=== PATIENT | female | born 2000 | race Caucasian/White ===

== ENCOUNTER 2019-04-28 12:00 | Emergency (ER) | payer OTHER ==
--- OUTSIDE RECORDS SUMMARY | 2019-04-28 12:09 | XMS REPORT | Continuity of Care Document ---
:2000 Author Organization [facility] Address [address] [place] [address] Phone Care Team Providers Name Role Phone Guilherme Hinojosa MD Unavailable Unavailable Allergies, Adverse Reactions, Alerts Substance Reaction Status shellfish derived Active tree nut Active egg Active Medications Medication Instructions Dosage Effective Dates Status Comments (start - stop) ProAir RespiClick 2-4 sprays every 4 - Active !! Check INHALATION INHALER hours as needed [employer] Pricing: BIN #: [id number] Group #: [id number] Card #: [id number] PCN:MARLA Qvar RediHaler 80 2 sprays twice - Active !! Check mcg/actuation HFA daily [employer] breath activated Pricing: BIN #: aerosol [id number] Group #: [id number] Card #: [id number] PCN:MARLA EpiPen 2-Franklyn 0.3 Use As Directed - Active !! Check mg/0.3 mL [employer] injection, Pricing: BIN #: auto-injector [id number] Group #: [id number] Card #: [id number] PCN:MARLA ProAir HFA 90 USE 2 INHALATIONS - Active !! Check mcg/actuation ORALLY BEFORE [employer] aerosol inhaler EXERCISE AND EVERY Pricing: BIN #: 4HOURS NEEDED [id number] Group #: [id number] Card #: [id number] PCN:MARLA Focalin XR 15 mg 1 pill each am - Active !! Check capsule,extended [employer] release Pricing: BIN #: [id number] Group #: [id number] Card #: [id number] PCN:MARLA Qvar 80 2 sprays twicea - Active !! Check mcg/actuation daily [employer] Metered Aerosol Pricing: BIN #: oral inhaler [id number] Group #: [id number] Card #: [id number] PCN:MARLA ProAir HFA 90 2 puff by - Active !! Check mcg/actuation Inhalation route [employer]Wize aerosol inhaler once ;administer Pricing: BIN #: with spacer [id number] Group #: [id number] Card #: [id number] PCN:MARLA OptiChamber Namrata use as directed - Active !! 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, unspecified Non-adherence to medical treatment Allergic rhinitis due to pollen Allergy to other foods Attention-deficit hyperactivity disorder, predominantly inattentive type Mild persistent asthma, uncomplicated Unspecified asthma, uncomplicated Allergic rhinitis due to pollen Mild persistent asthma Allergy to other foods Attention-deficit hyperactivity disorder, predominantly inattentive type Unspecified asthma, uncomplicated Unspecified asthma, uncomplicated Attention-deficit hyperactivity disorder, predominantly inattentive type Allergy to other foods Attention-deficit hyperactivity disorder, predominantly inattentive type Unspecified asthma, uncomplicated Allergic rhinitis due to pollen Allergy to other foods Attention-deficit hyperactivity disorder, predominantly inattentive type Unspecified asthma, uncomplicated Allergic rhinitis due to pollen Attention-deficit hyperactivity disorder, predominantly inattentive type Allergy to other foods Attention-deficit hyperactivity disorder, predominantly inattentive type Learning disability Attention-deficit hyperactivity disorder, predominantly inattentive type Unspecified asthma, uncomplicated Attention-deficit hyperactivity disorder, predominantly inattentive type Learning disability Pseudopapilledema of optic disc, bilateral Unspecified asthma, uncomplicated Allergic rhinitis due to pollen Allergy to other foods Attention-deficit hyperactivity disorder, predominantly inattentive type ADHD predominantly inattentive - type Learning disability - Pseudopapilledema of optic disc, - bilateral Unspecified asthma, uncomplicated Allergic rhinitis due to pollen Allergy to other foods Asthma, unspecified Allergy to other foods Allergic rhinitis due to pollen Asthma Asthma, unspecified Allergy, unspecified, not elsewhere classified Procedures Procedure Date OXIMETRY- Single determination SPIROMETRY OFFICE/OUTPATIENT VISIT EST 33-40 MEASURE BLOOD OXYGEN LEVEL BREATHING CAPACITY TEST OFFICE/OUTPATIENT VISIT EST Spirometry Test PULSE OXIMETRY -SINGLE DETER OFFICE/OUTPATIENT VISIT, EST Spirometry Test OFFICE/OUTPATIENT VISIT, EST OFFICE/OUTPATIENT VISIT, EST Spirometry Test OFFICE/OUTPATIENT VISIT, EST Spirometry Test Spirometry Test OFFICE/OUTPATIENT VISIT, EST OFFICE/OUTPATIENT VISIT, EST OFFICE/OUTPATIENT VISIT, EST Spirometry Test OFFICE/OUTPATIENT VISIT, EST OFFICE/OUTPATIENT VISIT, EST Spirometry Test OFFICE/OUTPATIENT VISIT, EST OFFICE/OUTPATIENT VISIT, NEW Spirometry Test OFFICE/OUTPATIENT VISIT, EST Spirometry Test OFFICE/OUTPATIENT VISIT, EST Spirometry Test OFFICE/OUTPATIENT VISIT, EST OFFICE/OUTPATIENT VISIT, EST MEASURE BLOOD OXYGEN LEVEL BREATHING CAPACITY TEST RESPIRATORY FLOW VOLUME LOOP OFFICE/OUTPATIENT VISIT, EST MEASURE BLOOD OXYGEN LEVEL EVALUATION OF WHEEZING RESPIRATORY FLOW VOLUME LOOP OFFICE/OUTPATIENT VISIT, EST MEASURE BLOOD OXYGEN LEVEL BREATHING CAPACITY TEST RESPIRATORY FLOW VOLUME LOOP OFFICE CONSULTATION OFFICE/OUTPATIENT VISIT, EST MEASURE BLOOD OXYGEN LEVEL BREATHING CAPACITY TEST RESPIRATORY FLOW VOLUME LOOP OFFICE/OUTPATIENT VISIT, EST MEASURE BLOOD OXYGEN LEVEL BREATHING CAPACITY TEST RESPIRATORY FLOW VOLUME LOOP OFFICE/OUTPATIENT VISIT, EST MEASURE BLOOD OXYGEN LEVEL BREATHING CAPACITY TEST RESPIRATORY FLOW VOLUME LOOP OFFICE/OUTPATIENT VISIT, EST MEASURE BLOOD OXYGEN LEVEL BREATHING CAPACITY TEST OFFICE/OUTPATIENT VISIT, EST MEASURE BLOOD OXYGEN LEVEL EVALUATION OF WHEEZING RESPIRATORY FLOW VOLUME LOOP OFFICE/OUTPATIENT VISIT, EST MEASURE BLOOD OXYGEN LEVEL BREATHING CAPACITY TEST RESPIRATORY FLOW VOLUME LOOP OFFICE/OUTPATIENT VISIT, EST MEASURE BLOOD OXYGEN LEVEL BREATHING CAPACITY TEST RESPIRATORY FLOW VOLUME LOOP OFFICE/OUTPATIENT VISIT, EST MEASURE BLOOD OXYGEN LEVEL BREATHING CAPACITY TEST RESPIRATORY FLOW VOLUME LOOP Results Test Name Date and Time Measure Units Reference Range Abnormal Flag Status Comments Panel Description: FVC Preliminary Image FVC 1 FVC (%Pred) 09:48:41 103 % Preliminary FEV1 (%Pred) 09:48:41 95 % Preliminary FEV1/FVC 09:48:41 0.807 >0.769 Preliminary FEF 25-75% (%Pred) 09:48:41 87 % Preliminary PEF (%Pred) 09:48:41 84 % Preliminary PEF (L/min) 09:48:41 364 L/min >320 Preliminary FEF25% (%Pred) 09:48:41 % Preliminary FEF50% (%Pred) 09:48:41 % Preliminary FEF75% (%Pred) 09:48:41 % Preliminary FET 09:48:41 5.85 s Preliminary Advance Directives Directive Yes / No Effective Date File Name No information Encounters Encounter Practice Location Reason(s) Diagnoses Date Provider Providers Description For Visit Copied on Encounter OFFICE/OUTPAT [facility] asthma Mild Jan- Dozor Referring IENT VISIT [facility] (chief persistent Guilherme. 19 Provider: EST 33-40 Health Pulmonology complaint) asthma with 9 [facility], (acute) [facility], [address] exacerbation [address], [facility] [place], [address] [place], [address], [place] [address], to [place]. Pediatrics, bennett ClarkeAttent tel:+4 [place], [address], ion-deficit [id number] [place], [place], [place] hyperactivit [address]. tel:+[phone] y disorder, tel:[phone] predominantl [address] y inattentive typeDevelopm ental disorder of scholastic skills, unspecifiedN on-adherence to medical treatment OFFICE/OUTPAT [facility] Allergic Jul- Dozor Referring IENT VISIT [facility] rhinitis due Guilherme. 19 Provider: EST Health Pulmonology to 9 [facility], [facility], , [address] y to other [address], [facility] foodsAttenti Coy, [place], [address], [address], [address], hyperactivit [place]. Coy, Coy, y disorder, tel:+4 [place], [address]. [place], [address], predominantl [id number] tel:[phone] [place] y [address] tel:[phone] inattentive 64366 typeMild persistent asthma, uncomplicate dUnspecified asthma, uncomplicate d OFFICE/OUTPAT [facility] Allergic Jan- Dozor Referring IENT VISIT, [facility] rhinitis due Guilherme. 19 Provider: EST Health Pulmonology to 8 [facility], [facility], E, [address] persistent [address], [facility] asthmaAllerg Coy, [address], [address], [address], [place] [address], foodsAttenti [place]. Pediatrics, Coy, [place]: [place], [address], hyperactivit [id number] [place], [place] y disorder, [address]. tel: predominantl tel: [phone] y [phone] inattentive typeUnspecif ied asthma, uncomplicate d OFFICE/OUTPAT [place] Unspecified Dozor Referring IENT VISIT, [facility]'s [facility] asthma, 0-201 Guilherme. 19 Provider: [facility] uncomplicate 8 [facility], [facility], E, [address] eficit [address], [facility] hyperactivit Coy, Ave, [address] [place], [address], [place] [address], predominantl [place]. Pediatrics, Coy, [place]: [place], [address], inattentive [id number] [place], [place], [place] typeAllergy [address]. tel: to other tel: [phone] foods [phone] OFFICE/OUTPAT [place] Attention-de Mar-0 Bonnie Referring IENT VISIT, Children's Bonnie DU ficit 5-201 Ander. Provider: [facility] [place] hyperactivit 8 [address] [facility], Office y disorder, [place], E, [address] predominantl [address], [facility] Pediatric [address], [address] inattentive Neurology [place] [address], type Assoc, Pediatrics, Coy, [place], [place], [address], [place], [place], [place], [place] [id number], [address]. tel: [place]. tel: [phone] tel: [phone] OFFICE/OUTPAT [place] Unspecified Dozor Referring IENT VISIT, [facility] [place] asthma, Guilherme. 19 Provider: Critical access hospital Pulmonology uncomplicate 7 [facility] [place] [facility], [facility], E, [address] rhinitis due [address], [facility] to Coy, Ave, [address] [place], [address], [place] [address], y to other [place]. Pediatrics, Coy, foodsAttenti tel:+ [place], [address], on-deficit [id number] [place], [place] hyperactivit [address]. tel: y disorder, tel:+ [phone] predominantl [address] y inattentive type OFFICE/OUTPAT [place] Unspecified Dozor Referring IENT VISIT, [facility], Guilherme. 19 Provider: Critical access hospital Pulmonology uncomplicate 7 [facility], [facility], E, [address] rhinitis due [address], [facility] to Coy, Ave, [address] [place], [address], [place] [address], ion-deficit [place]. Pediatrics, Coy, [place]: [place], [address], y disorder, [id number] [place], [place], [place] predominantl [address]. tel: y tel:[phone] inattentive 95842 typeAllergy to other foods OFFICE/OUTPAT [place] Attention-de Omid-2 Bonnie Referring IENT VISIT, Children's Bonnie DU ficit Ander. Provider: [facility] [place] hyperactivit 7 [address] Errol [facility], Office y disorder, [place], E, [address] predominantl [address], [facility] y Pediatric Ave, [address] inattentive Neurology [place] [address], typeLearning Assoc, Pediatrics, Coy, disability [place], [place], [address], [place], [place], [place], [place] [id number], [address]. tel: [place]. tel: [phone] tel:[phone] OFFICE/OUTPAT [place] Attention-de May-2 Bonnie Referring IENT VISIT, Childrenrachael Nicole MD ficit 0-201 Ander. Provider: [facility] Road[facility]it 7 [address] Errol [facility], Office y disorder, [place], E, [address] predominantl [address], [place] y Pediatric [address], [address] inattentive Neurology [place] [address], type Assoc, Pediatrics, Coy, [place], [place], [address], [place], [place], [place], [place] [id number], [address]. tel: [place]. tel: [phone] tel:[phone] OFFICE/OUTPAT [facility] Unspecified Apr- Dozor Referring IENT VISIT, Children's [facility] asthma, Guilherme. 19 Provider: Critical [facility] Errol [facility], [facility], E, [address], [place], [address], [address] [place], [address], [place] [address], [place]. Pediatrics, Coy, tel: [facility], [address], [id number] [place] [address]. tel: tel:[phone] OFFICE/OUTPAT [place] Attention-de Mar- Bonnie Referring IENT VISIT, Cale Nicole MD ficit 8201 Ander. Provider: [facility] [place] hyperactivit 7 [address] [facility], Office y disorder, [place], E, [address] predominantl [address], [place] y Pediatric [address], [address] inattentive Neurology [place] [address], typeLearning Assoc, Pediatrics, Coy, disabilityPs [place], [place], [address], eudopapilled [place], [place], [place], [place] cipriano of optic [id number], [address]. tel:[phone] disc, [place]. tel:[phone] bilateral tel:[phone] OFFICE/OUTPAT [place] Unspecified Sep- Dozor Referring IENT VISIT, [facility] asthma, Guilherme. 19 Provider: Critical access hospital Pulmonology uncomplicate 6 [facility] Errol [facility], [facility], E, [address] rhinitis due [address], [facility] to Coy, Ave, [address] [place], [address], [place] [address], y to other [place]. Pediatrics, Coy, foodsAtt[place]: [place], [address], on-deficit [id number] [place], [place], [place] hyperactivit [address]. tel:459 y disorder, tel:[phone] predominantl [address] y inattentive type OFFICE/OUTPAT [place] ADHD Omid- Bonnie Referring IENT VISIT, Children's Bonnie DU predominantl 3-201 Ander. Provider: [facility] y 6 [address] Errol [facility], Office inattentive [place], E, [address] typeLearning [address], [facility] disabilityPs Pediatric Ave, [address] eudopapilled Neurology [place] [address], cipriano of optic Assoc, Pediatrics, Coy, disc, [place], [place], [address], bilateral [place], [place], [place], [place] [id number], [address]. tel:459 [place]. tel:[phone] tel:[phone] OFFICE/OUTPAT [place] Unspecified Apr- Dozor Referring IENT VISIT, [facility] asthma, Guilherme. 19 Provider: Critical access hospital Pulmonology uncomplicate 6 [facility], [facility], E, [address] rhinitis due [address], [facility] to Coy, Ave, [address] [place], [address], [place] [address], y to other [place]. Pediatrics, Coy, [place]: [place], [address], [id number] [place] [address]. tel: tel: [phone] OFFICE/OUTPAT [place] Asthma, Sep-0 Dozor Referring IENT VISIT, [facility] Peds unspecifiedA Guilherme. 19 Provider: EST Health Pulmonology llergy to 5 [facility], other [address], E, [address] foodsAllergi [address], [place] c rhinitis Coy, [address], [address] [place], [address], [place] [address], pollen [place]. Pediatrics, Tricia, tel:+ [place], [address], [id number] [place] [address]. tel: tel: [phone] OFFICE/OUTPAT [place] [facility] AsthmaAsthma Mar-0 Dozor Referring IENT VISIT, [facility] , Guilherme. 19 Provider: EST Health Pulmonology unspecifiedA 5 [facility], llergy, Avenue, E, [address] unspecified, [address], [place] not Coy, Ave, [address] [place], [address], [place] [address], classified [place]. Pediatrics, Tricia, [place]: [place], [address], [id number] [place] [address]. tel: tel: [phone] [place] Mar-0 Dozor Children[facility] Peds 3 Guilherme. 19 Health Pulmonology 5 [facility], [address], [address], [place], [place], [address], [address], [place]. [place], [place]:+ [place], [address], [id number] [place] tel: [phone] OFFICE/OUTPAT [place] Oct-0 Dozor IENT VISIT, [facility] Peds 2 Guilherme. 19 [facility] Health Pulmonology 3 [facility], Avenue, [address], [place], [place], [address], [address], [place]. Coy, tel:+1-334 [place], [address], [id number] [place] tel:[phone] OFFICE/OUTPAT [facility] Mar-2 Dozor IENT VISIT, Children[facility] Peds 6-201 Guilherme. 19 [facility] Health Pulmonology 3 [facility], [address], [address], [place] [address], [place], [address], [address], [place]. Coy, tel:+[phone] [place], [address], [id number] [place] tel:[phone] OFFICE/OUTPAT [facility] Nov-0 Dozor IENT VISIT, Children[facility] Peds 8-201 Guilherme. 19 [facility] Health Pulmonology 2 [facility], [place], [address], [facility] [place], [place], [address], [address], [place]. Coy, tel:+554 [place], [address], [id number] [place] tel:[phone] OFFICE [place] Nov- Bonnie CONSULTATION Children's Bonnie DU [facility] 2 [address] Physicians, Office [place], [address], [place] Pediatric [address] Neurology [address], Assoc, Coy, [place], [address], [place], [place] [id number], tel:+[phone] [place]. [address] tel:[phone] OFFICE/OUTPAT [facility] Arturo-0 Dozor IENT VISIT, Children[facility] Peds 9-201 Guilherme. 19 [facility] Health Pulmonology 2 [facility], [address], [address], [place] [address], [place], [address], [address], [place]. Coy, tel:+914 [place], [address], [id number] [place] tel:[phone] OFFICE/OUTPAT [facility] Oct-0 Dozor IENT VISIT, Children[facility] Peds 6- Guilherme. 19 EST Health Pulmonology 1 [facility], [place], [address], [address] [address], [place], [address], [address], [place]. Coy, tel:+1-914 [place], [address], [id number] [place] tel:[phone] OFFICE/OUTPAT [facility] Mar-2 Dozor IENT VISIT, Children[facility] Peds 4-201 Guilherme. 19 EST Health Pulmonology 1 [facility], [place], [address], [address] [address], [place], [address], [address], [place]. [place], tel:+1-914 [place], [address], [id number] [place] tel:[phone] OFFICE/OUTPAT [facility] Sep-1 Dozor IENT VISIT, [facility] Peds 6- Guilherme. 19 EST Health Pulmonology 0 [facility], [place], [address], [address] [address], [place], [address], [address], [place]. Coy, tel:+1-914 [place], [address], [id number] [place] tel:[phone] OFFICE/OUTPAT [facility] Apr-0 Dozor IENT VISIT, [facility] Peds 1- Guilherme. 19 EST Health Pulmonology 0 [facility], [place], [address], [place] [address], [place], [address], [address], [place]. Coy, tel:+1-914 [place], [address], [id number] [place] tel:[phone] OFFICE/OUTPAT [facility] Arturo-2 Dozor IENT VISIT, [facility] Peds 8- Guilherme. 19 EST Health Pulmonology 0 [facility], [place], [address], [address] [address], [place], [address], [address], [place]. Coy, tel:+1-914 [place], [address], [id number] tel:[phone] OFFICE/OUTPAT [facility] Sep-1 Dozor IENT VISIT, Children[facility] Peds 0-200 Guilherme. 19 Critical access hospital Pulmonology 9 [facility], [address], [address] [address], [place], [address], [address], [place]. Coy, tel:+-974 [place], [address], [id number] [place] tel:[phone] OFFICE/OUTPAT [facility] Omid-0 Dozor IENT VISIT, Children[facility] Peds 9-200 Guilherme. 19 Critical access hospital Pulmonology 9 [facility], [address], [facility] [address], [facility], [address], [address], [place]. Tricia, tel:+114 [place], [address], [id number] tel:[phone] Family History Family Member Diagnosis Age At Onset No information Immunizations Vaccine Date Status Comments No information Payers Payer name Insurance type Covered democrat ID Authorization(s) R [facility] [employer] CI [id number] [employer] PPO CI [id number] Social History Type Description Quantity Date Captured Comments Alcohol Use Details No Caffeine Use Details tea 1 cup per day Tobacco Use Status Never smoked tobacco Smoking Status Never smoker Sex Female Vital Signs Date / Height Weight BMI Pulse Blood Temperature Respiratory Body Head BMI Pulse Inhaled Time: Rate Pressure Rate Surface Circumference percentile Ox Ox Area 65.50 132.00 21.6 98 98.8 F 20 /min 49 -2019 in lbs 3 /min 9:44 kg/m AM eter (2) Chief Complaint And Reason For Visit Most recent encounter only, dated '02/21/2019 09:40'. asthma (chief complaint). Description: The initial visit date was 05/01/2014. Pertinent negatives include irregular heartbeat/palpitations and wheezing. Additional information: Last seen 6 months ago, and Leola has stopped taking her daily controller therapy, unbeknownst to her mom. It is not clear when this stopped she is having fairly frequent symptoms, but takes abluterol about nce a week, of not more. she denies vaping or smoking. We discussed the reasons for controller therapy, but she doesnot seem to be carol tinterested in hacheiveing better asthm acontrol, at least not today. Reason For Referral Reason For Referral No information Plan Of Treatment Date Type Action Status Appointment LEOLA STRATTON BOOKED History Of Present Illness Encounter Date Complaint History Of Present Illness asthma The initial visit date was 05/01/2014. Pertinent negatives include irregular heartbeat/palpitations and wheezing. Additional information: Last seen 6 months ago, and Leola has stopped taking her daily controller therapy, unbeknownst to her mom. It is not clear when this stopped she is having fairly frequent symptoms, but takes abluterol about nce a week, of not more. she denies vaping or smoking. We discussed the reasons for controller therapy, but she doesnot seem to be carol tinterested in hacheiveing better asthm acontrol, at least not today. Functional Status Date Functional Assessment No information Medications Administered Medication Instructions Dosage Effective Dates (start - stop) Status Comments No information Instructions Date Instruction Additional Information For now, will just use intermittent Related to Mild persistent asthma albuterol, but I've urged her to with (acute) exacerbation reconsider, especially if she finds she is requiring bronchodilators more and more. Return in 6 months Related to Mild persistent asthma with (acute) exacerbation increase QVAR80 to 2 sprays BIDI Related to Mild persistent asthma, reviewed with her optimal inhalation uncomplicated technique for when she switches to the QVAR Redihaler (she is still working through their supply of old MDIs, but she insists they are ont . Return in 6 months Related to Mild persistent asthma, uncomplicated Switch to QVAR80 Redihaler, 2 sprays Related to Mild persistent asthma BIDAdd albuterol as needed. Return in 6 months Related to Mild persistent asthma 1. Instead of QVAR80 MDI (which is no Related to Unspecified asthma, longer being made), will switch to uncomplicated QVAR Respihaler (DPI), 2 sprays BID 2. will try ProAir Respiclick, 4 sprays every 4 to 6 hours as needed, including now until this cough is resolved. Return in 6 months Related to Unspecified asthma, uncomplicated counseling re diagnostic workup and Related to Attention-deficit plan of treatment hyperactivity disorder, predominantly inattentive type Increase QVAR80 back to 2 sprays in Related to Unspecified asthma , chamber twic edailyScript for EpiPen uncomplicated given (nut allergy)Asthma action plan reviewed. Return in 6 months Related to Unspecified asthma, uncomplicated restart QVAR80 x 2 sprays twice daily Related to Unspecified asthma, and return in 4 months so we can see uncomplicated if this is adequate in reversing her slow but steady decline in lung function. Return in 4 months Related to Unspecified asthma, uncomplicated counseling re diagnostic workup and Related to Attention-deficit plan of treatment hyperactivity disorder, predominantly inattentive type Medication for treatment of Attention Related to Attention- deficit Deficit side effects reviewed hyperactivity disorder, predominantly inattentive type Remain on QVAR80 x 2 sprays once Related to Unspecified asthma, daily, twice daily when coughing (such uncomplicated as now). Perhaps after the spring allergy season, we can rediscuss the idea of stopping routine meds. Return in 6 months Related to Unspecified asthma, uncomplicated Information regarding ADHD provided Related to Attention-deficit hyperactivity disorder, predominantly inattentive type Medication management discussed Related to Attention-deficit hyperactivity disorder, predominantly inattentive type Continue QVAR 80 x 2 sprays in spacer Related to Unspecified asthma, once daily when well, twice daily if uncomplicated coughing.Use albuterol, 2 sprays before swimming and 2-4 sprays every 4 hours as needed.Leloa and her mom have declined a flu shot, convinced it makes people sick. Return in 6 months Related to Unspecified asthma, uncomplicated counseling re diagnostic workup and Related to ADHD predominantly plan of treatment inattentive type New Plan: QVAR80 x 2 sprays in Related to Unspecified asthma, holding chamber, once daily when well, uncomplicated twice daily when coughing.as needed: albuterol, 4 sprays in spacer every 4 hours as needed, or before highly aerobic sports. Return in 6 months Related to Unspecified asthma, uncomplicated New Plan: Asmanex DPI, 220 mcg once Related to Asthma, unspecified daily. Use albuterol in a spacer as needed. Return in 6 months Related to Asthma, unspecified Continue as needed Zyrtec, 10 mg once Related to Allergy, unspecified, daily. not elsewhere classified We discussed options for stepping Related to Asthma down, and we decided to lower her Symbicort to 80/4.5 x 2 sprays once daily when well, twice daily if coughing. Use albuterol, 2-4 sprays before swimming and other highly aerobic exercise. 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 We discussed the risks and benefits of controller therapy versus bronchodilators alone, but Leola is not willing to adhere. She also refuses a flu shot, despite my detailng the risk and benefits. Goals Health Concern Goal Type Priority Status Date No information Medical Equipment Description Device [place] Device Identifier Effective Dates (start - stop ) Status No information Mental Status Date Cognitive Assessment Orientation - Oriented to time, place, person, situation. Health Concerns Observation Date No information Concern Status Date No information
[2019-04-28 12:44] VITALS: BP 138/89
--- NOTE | 2019-04-28 13:01 | UC ---
Eye Complaint HPI - HPI Summary HPI Summary: Pt presents with c/o sudden onset of right eye redness, crusted discharge, and "eye goop" in right eye that began this morning. - History of Current Complaint Chief Complaint: UCEye Stated Complaint: BILATERAL EYE Hx Obtained From: Patient Hx Last Menstrual Period: 04/22/19 ?: No Onset/Duration: Sudden Onset, Lasting Days, Still Present Timing: Constant Severity Initially: Mild Severity Currently: Mild Pain Intensity: 0 Aggravating Factor(s): Light Alleviating Factor(s): Nothing Associated Signs And Symptoms: Positive: Drainage (Purulent), Swelling - Risk Factors Penetrating Injury Risk Factor: Negative Globe Rupture Risk Factors: Negative Acute Glaucoma Risk Factors: Negative Optic Artery Occlusion Risk Factors: Negative - Allergies/Home Medications Allergies/Adverse Reactions: Allergies Allergy/AdvReac Type Severity Reaction Status Date / Time Tree Nuts Allergy Anaphylatic Verified 12/27/18 13:34 Shock Home Medications: Home Medications Norethindr/Eth Estradiol(Nf) [Lo Loestrin Fe (NF)] 1 tab PO DAILY 04/28/19 [ History Confirmed 04/28/19] Polymyx/Trimethoprim OPTH* [Polytrim OPHTH*] 2 drop RIGHT EYE Q8H 7 Days #1 btl 04/28/19 [Rx] Sertraline* [Zoloft*] 50 mg PO DAILY 04/28/19 [History Confirmed 04/28/19] PMH/Surg Hx/FS Hx/Imm Hx Previously Healthy: Yes - Surgical History Surgical History: Yes Surgery Procedure, Year, and Place: [facility] - Family History Known Family History: Positive: Cardiac Disease - Social History Occupation: Student Lives: Dormitory/Roommates Alcohol Use: Occasionally Substance Use Type: None Smoking Status (MU): Never Smoked Tobacco Have You Smoked in the Last Year: No - Immunization History Hx Tetanus, Diphtheria Vaccination: Yes Vaccination Up to Date: Yes Review of Systems All Other Systems Reviewed And Are Negative: Yes Constitutional: Positive: Negative Skin: Positive: Negative Eyes: Positive: Drainage, Eye Redness ENT: Positive: Negative Respiratory: Positive: Negative Cardiovascular: Positive: Negative Gastrointestinal: Positive: Negative Genitourinary: Positive: Negative Motor: Positive: Negative Neurovascular: Positive: Negative Musculoskeletal: Positive: Negative Neurological/Mental Status: Positive: Negative Psychological: Positive: Negative Is Patient Immunocompromised?: No Physical Exam Triage Information Reviewed: Yes Appearance: Well-Appearing Vital Signs: Initial Vital Signs Temp 98.2 F 04/28/19 12:42 Pulse 91 04/28/19 12:42 Resp 18 04/28/19 12:42 BP 138/89 04/28/19 12:42 Pulse Ox 100 04/28/19 12:42 Vital Signs Reviewed: Yes Eyes: Positive: Conjunctiva Inflamed - right, Discharge - right ENT Exam: Normal Dental Exam: Normal Neck exam: Normal Respiratory Exam: Normal Respiratory: Positive: No respiratory distress Musculoskeletal Exam: Normal Neurological Exam: Normal Psychological Exam: Normal Skin Exam: Normal Eye Complaint Course/Dx - Differential Dx/Diagnosis Differential Diagnosis/HQI/PQRI: Conjunctivitis, Corneal Abrasion Provider Diagnosis: Conjunctivitis, right eye Discharge ED - Sign-Out/Discharge Documenting (check all that apply): Patient Departure All imaging exams completed and their final reports reviewed: No Studies - Discharge Plan Condition: Stable Disposition: HOME Prescriptions: Polymyx/Trimethoprim OPTH* [Polytrim OPHTH*] 2 drop RIGHT EYE Q8H 7 Days #1 btl Patient Education Materials: Conjunctivitis (ED) Referrals: [facility] [Outside] - If Needed No Primary Care Phys,NOPCP [Primary Care Provider] - - Billing Disposition and Condition Condition: STABLE Disposition: Home
== END 2019-04-28 13:19 | disposition home or self-care (01) ==
LOC: UCCORT 12:00
DX: H10.9 Unspecified conjunctivitis (principal); Z91.018 Allergy to other foods
CPT/HCPCS: 99212; G0463